=== PATIENT | female | born 1980 | race Caucasian/White ===

== ENCOUNTER 2016-05-14 13:57 | Inpatient (IN) | payer MEDICAID ==
[~2016-05-14] VITALS: Ht 165.1 cm; Wt 108.9 kg
[2016-05-14] MEDS ORDERED: CEFUROXIME 1.5 GM (ZINACEF) VIAL ONE (14:05)
[2016-05-14] MEDS ORDERED: DEXAMETHASONE PF 10 MG/ML (DECADRON) VIAL ONE ×3 (14:06→15:14)
[2016-05-14] MEDS ORDERED: NS (IVPB) 50 ML ONE (14:07)
[2016-05-14] MEDS ORDERED: fentaNYL INJECTION 100 MCG/2 ML AMP ONE ×2 (14:12→15:01)
[2016-05-14] MEDS ORDERED: ONDANSETRON 4 MG/2 ML (SDV) Z0FRAN ONE ×2 (14:12→15:11)
[2016-05-14] MEDS ORDERED: MIDAZOLAM 2 MG/2 ML (VERSED) VIAL ONE (14:12)
[2016-05-14] MEDS ORDERED: LIDOCAINE 1% 10 MG/ML 0.2 ML SYR (FOR IV START) ONE (14:13)
[2016-05-14] MEDS ORDERED: LIDOCAINE PF 2% 10 ML (XYLOCAINE) AMP ONE (14:14)
[2016-05-14] MEDS ORDERED: LACTATED RINGERS 1,000 ML IV ONE (14:14)
[2016-05-14] MEDS ORDERED: SEVOFLURANE (ULTANE) 15 ML INHAL SOLN ONE ×3 (14:14→16:07)
[2016-05-14] MEDS ORDERED: ROCURONIUM 50 MG/5 ML (ZEMURON) VIAL IV ONE (14:14)
[2016-05-14] MEDS ORDERED: proPOfol 200 MG/20 ML (DIPRIVAN) VIAL IV ONE (14:14)
[2016-05-14] MEDS: LACTATED RINGERS 1,000 ML IV SCH ×2 (14:20→21:21)
[2016-05-14] MEDS ORDERED: CEFUROXIME 1.5 GM/NS 50 ML IVPB IV ONE ×2 (14:30)
[2016-05-14] MEDS ORDERED: DEXAMETHASONE PF 10 MG/ML (DECADRON) VIAL IV ONE (14:30)
[2016-05-14 14:33] VITALS: BP 134/95
[2016-05-14 14:39] LABS: BASOPHILS % (AUTO) 0 % (0-10); EOSINOPHILS % (AUTO) 0 % (0-10); LYMPHOCYTES # (AUTO) 0.6 X 10^3 (1.0-4.0); LYMPHOCYTES % (AUTO) 1 % (12-44); MEAN CORPUSCULAR HEMOGLOBIN 23 PG (25-34); MEAN CORPUSCULAR HGB CONC 31 G/DL (32-36); MEAN CORPUSCULAR VOLUME 74 FL (80-99); MEAN PLATELET VOLUME 10.2 FL (7.4-10.4); MONOCYTES # (AUTO) 1.7 X 10^3 (0.0-1.0); MONOCYTES % (AUTO) 4 % (0-12); NEUTROPHILS % (AUTO) 95 % (42-75); PLATELET COUNT 327 10^3/uL (130-400); RED CELL DISTRIBUTION WIDTH 15.6 % (10.0-14.5)
[2016-05-14 14:45] LABS: WHITE BLOOD COUNT 43.4 10^3/uL (4.3-11.0)
[2016-05-14] MEDS ORDERED: LIDOCAINE/EPI 1%-1:100,000 (XYLOCAINE) 20ML ONE (14:49)
[2016-05-14 14:52] LABS: ANION GAP 10 MMOL/L (5-14); BLOOD UREA NITROGEN 9 MG/DL (7-18); BUN/CREATININE RATIO 13; CALCIUM 8.8 MG/DL (8.5-10.1); CARBON DIOXIDE 23 MMOL/L (21-32); CHLORIDE 105 MMOL/L (98-107); GFR ESTIMATED > 60; GLUCOSE 118 MG/DL (70-105); POTASSIUM 4.2 MMOL/L (3.6-5.0); SODIUM 138 MMOL/L (135-145)
--- NOTE | 2016-05-14 14:55 | Progress Note-Pre Operative ---
Pre-Operative Progress Note H&P Reviewed The H&P was reviewed, patient examined and no changes noted. Date H&P Reviewed: May 14, 2016 Time H&P Reviewed: 14:50 Pre-Operative Diagnosis: Left Peritonsillar ABscess ROMULO WOO MD May 14, 2016 2:55 pm
[2016-05-14 15:01] LABS: BAND NEUTROPHILS 2 %; BASOPHILS % (MANUAL) 1 %; LYMPHOCYTES % (MANUAL) 1 %; NEUTROPHILS % (MANUAL) 95 %
[2016-05-14] MEDS ORDERED: morphine INJ 10 MG/ML 1ML (SYR OR VIAL) ONE (15:11)
[2016-05-14] MEDS ORDERED: SUCCINYLCHOLINE INJ 100 MG/5 ML SYR ONE (16:01)
--- NOTE | 2016-05-14 16:19 | Progress Note-Post Operative ---
Post-Operative Progess Note Surgeon (s)/Solidworks Mechanical Designer (s) Surgeon ROMULO WOO MD Solidworks Mechanical Designer: n/a Pre-Operative Diagnosis Left Peritonsillar ABscess Post-Operative Diagnosis Left Peritonsillar Cellulitis, Left parpharyngeal ABscess Post-Op Procedure Note Date of Procedure: May 14, 2016 Name of Procedure Performed: Incision and DRainage-Left Peritonsillar Cellulitis/Abscess Incision and Dariange Left Deep Neck Abscess-Left parpharyngeal space-external incision Description of the Procedure: aeroibic and anaerobic cultures taken from left paraphayrngeal space to lab small amount of put removed from left peritonsilalr region and left parapharyngeal space Findings of the Procedure see above Anesthesia Type GET Estimated blood loss (mL): 25cc Packin 1/2 inch malena drains placed with a neck dressing Specimen(s) collected/removed see above ROMULO WOO MD May 14, 2016 16:18
[2016-05-14] MEDS ORDERED: ACETAMINOPHEN 325 MG TABLET/CAPLET (TYLENOL) PO PRN (16:30)
[2016-05-14] MEDS ORDERED: HYDROmorphone (DILAUDID) 2 MG/ML VIAL IVP PRN (16:45)
[2016-05-14] MEDS ORDERED: morphine INJ 10 MG/ML 1ML (SYR OR VIAL) IVP PRN (16:45)
[2016-05-14] MEDS ORDERED: ONDANSETRON 4 MG/2 ML (SDV) Z0FRAN IVP PRN (16:45)
[2016-05-14] MEDS ORDERED: MEPERIDINE (DEMEROL) INJ 50 MG/ML IVP PRN (16:45)
[2016-05-14 17:30] VITALS: BP 134/95
[2016-05-14] MEDS ORDERED: DEXAMETHASONE 4 MG/ML SDV (DECADRON) IV SCH (18:00)
[2016-05-14] MEDS: fentaNYL INJECTION 100 MCG/2 ML AMP IVP PRN ×2 (18:14→21:21)
[2016-05-14 19:20] VITALS: BP 134/78
[2016-05-14] MEDS ORDERED: FLU TRIvalent (5 YOA+) 2016-17 (AFLURIA) 0.5 ML IM ONE (20:00)
[2016-05-14] MEDS: DEXAMETHASONE PF 10 MG/ML (DECADRON) VIAL IV SCH ×2 (20:03→23:48)
[2016-05-14] MEDS: CEFUROXIME INJECTION 1,500 MG in NS (IVPB) 50 ML IV SCH (21:25)
[2016-05-15] VITALS: BP 126/67
[2016-05-15] MEDS: fentaNYL INJECTION 100 MCG/2 ML AMP IVP PRN ×5 (03:16→16:55)
[2016-05-15 04:00] VITALS: BP 107/58
[2016-05-15] MEDS: DEXAMETHASONE PF 10 MG/ML (DECADRON) VIAL IV SCH ×3 (05:13→20:34)
[2016-05-15] MEDS: CEFUROXIME INJECTION 1,500 MG in NS (IVPB) 50 ML IV SCH ×3 (05:13→21:14)
[2016-05-15 06:01] LABS: BASOPHILS # (AUTO) 0.1 10^3/uL (0.0-0.1); BASOPHILS % (AUTO) 0 % (0-10); EOSINOPHILS % (AUTO) 0 % (0-10); LYMPHOCYTES % (AUTO) 2 % (12-44); MEAN CORPUSCULAR HEMOGLOBIN 23 PG (25-34); MEAN CORPUSCULAR HGB CONC 30 G/DL (32-36); MEAN CORPUSCULAR VOLUME 76 FL (80-99); MEAN PLATELET VOLUME 10.3 FL (7.4-10.4); MONOCYTES # (AUTO) 1.4 X 10^3 (0.0-1.0); MONOCYTES % (AUTO) 3 % (0-12); NEUTROPHILS # (AUTO) 45.6 X 10^3 (1.8-7.8); NEUTROPHILS % (AUTO) 95 % (42-75); PLATELET COUNT 321 10^3/uL (130-400); RED BLOOD COUNT 4.59 10^6/uL (4.35-5.85); RED CELL DISTRIBUTION WIDTH 15.7 % (10.0-14.5)
[2016-05-15 06:17] LABS: ANION GAP 9 MMOL/L (5-14); BLOOD UREA NITROGEN 16 MG/DL (7-18); BUN/CREATININE RATIO 21; CALCIUM 9.1 MG/DL (8.5-10.1); CARBON DIOXIDE 24 MMOL/L (21-32); CHLORIDE 105 MMOL/L (98-107); CREATININE SERUM 0.78 MG/DL (0.60-1.30); GFR ESTIMATED > 60; GLUCOSE 174 MG/DL (70-105); POTASSIUM 4.3 MMOL/L (3.6-5.0); SODIUM 138 MMOL/L (135-145)
--- NOTE | 2016-05-15 06:42 | Progress Note-Standard ---
Standard Progress Note Progress Notes/Assess & Plan Progress/Assessment & Plan ENT-Sarah-05/15 Patient able to swallow some-stings to swallow Had two doses of fentanyl overnight-overall she states she has less pain and is able to open her mouth better cultures pending-on zinacef and decadron NO fever Breathing without difficulty OP-less trismus left tonsil still bulging but less swollen that yesterday afternoon-incision in soft palate open Neck-dressing removed-two drains intact-moderate drainage-belt tender along angle of mandible No tenderness or swelling below incision site [id number]-[id number] am -48 which is an increase of 4 since last afternoon-still pred segs Did culture positive for Group A strep in [place] cultures done at time of surgery are sstill pending IMP 1. Left Neck Abscess-Strep 2. Clinically better but WBC rising Rec: 1. Await culture results-will add cleocin 900mg IV q 8-1st does now 2. With rising white count will repeat a ct of the neck this am and see if there is further acumulation of fluid At time of surgery -got a small amount of pus-pre-op ct showed a phlegmon with early abscess formation in parapharyngeal region If this am ct shows more involvement despite drainage procedure yesterday then will need to transfer to for evaluation and higher level of care Final Diagnosis Left Neck Abscess ROMULO WOO MD May 15, 2016 6:42 am
[2016-05-15] MEDS ORDERED: CATHETER FLUSH 10 ML SYR IV PRN (06:45)
[2016-05-15] MEDS ORDERED: IOHEXOL 350 MG/ML 100 ML (OMNIPAQUE 350) VIAL IV ONE (07:30)
[2016-05-15] MEDS ORDERED: NS 100 ML (IVPB) BAG IV ONE (07:30)
[2016-05-15] MEDS: LACTATED RINGERS 1,000 ML IV SCH ×2 (08:00→21:14)
[2016-05-15] MEDS: CLINDAMYCIN 900 MG/50 ML IVPB 50 ML IV SCH ×3 (08:00→22:25)
[2016-05-15 08:39] VITALS: BP 113/65
--- NOTE | 2016-05-15 08:49 | Diagnostic Imaging Report ---
PROCEDURE: CT neck soft tissue with contrast. TECHNIQUE: Multiple contiguous axial images were obtained through the neck after the administration of contrast. INDICATION: Followup left neck abscess. 100 mL of Omnipaque 350 administered intravenously. FINDINGS: There is a left peritonsillar abscess with air bubbles seen and minimal amount of fluid. This is measuring 1.5 x 1.1 x 1.4 cm. There is surrounding inflammation and thickening in the nasopharynx and in the hypopharynx and extending to the larynx predominantly on the left side with fullness of the left pyriformis sinus and extension of the mucosal thickening to the false cord level. There is to external drains placed from a submandibular approach with the drain tip terminating in the left parapharyngeal space abutting the mandibular attachment of the pterygoid muscles. The anterior drain terminates at the lower level about the lateral pterygoid muscle and the posterior the and terminates more superiorly between the mandible and the sites styloid process. Near the tip of the posterior drain there is a 7-mm rounded area of contrast enhancement. This is concerning for a pseudoaneurysm. This is close to branches coursing medially from the distal aspect of the external carotid artery and similar branches from the proximal aspect of the internal maxillary artery. The thyroid gland and the submandibular and parotid glands appear unremarkable. There are enlarged left submandibular lymph nodes seen up to 1 cm in short axis. Other similarly mildly enlarged upper cervical level II left-sided lymph nodes also noted. IMPRESSION: 1. There is significant inflammation and swelling in the oropharynx, hypopharynx, and larynx predominantly on the left side with an abscess cavity measuring 1.5 cm with minimal fluid. 2. There is an external drain placed from a left submandibular approach. 3. A 7-mm focus of contrast enhancement near medial aspect of the tip of the posterior drain is concerning for a pseudoaneurysm. This is located the slightly medial to the space between the mandible and the styloid process superiorly and could be arising from a proximal branch of the internal maxillary artery or the medial branch from the most distal aspect of the external carotid artery. Dr. Smith personally reviewed case and findings discussed at time of dictation. Dictated by: Dictated on workstation # [id number]
--- NOTE | 2016-05-15 09:22 | Progress Note-Standard ---
Standard Progress Note Progress Notes/Assess & Plan Progress/Assessment & Plan ENT-Sarah-05/15 Patient able to swallow some-stings to swallow Had two doses of fentanyl overnight-overall she states she has less pain and is able to open her mouth better cultures pending-on zinacef and decadron NO fever Breathing without difficulty OP-less trismus left tonsil still bulging but less swollen that yesterday afternoon-incision in soft palate open Neck-dressing removed-two drains intact-moderate drainage-oil process stillman along angle of mandible No tenderness or swelling below incision site [id number]-[id number]-brvk am -48 which is an increase of 4 since last afternoon-still pred segs Did culture positive for Group A strep in [place] cultures done at time of surgery are sstill pending IMP 1. Left Neck Abscess-Strep 2. Clinically better but WBC rising Rec: 1. Await culture results-will add cleocin 900mg IV q 8-1st does now 2. With rising white count will repeat a ct of the neck this am and see if there is further acumulation of fluid At time of surgery -got a small amount of pus-pre-op ct showed a phlegmon with early abscess formation in parapharyngeal region If this am ct shows more involvement despite drainage procedure yesterday then will need to transfer to [facility] for evaluation and higher level of care [id number] Ct reviewed with Rad. 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 concerned about cT findings and inc in wbc despite imprvement clinically will discuss with [facility] and discuss tx as well as possible transfer for higher level of care ROMULO WOO MD May 15, 2016 9:22 am
--- NOTE | 2016-05-15 10:49 | Progress Note-Standard ---
Standard Progress Note Progress Notes/Assess & Plan Progress/Assessment & Plan Sindy-05/15 Patient able to swallow some-stings to swallow Had two doses of fentanyl overnight-overall she states she has less pain and is able to open her mouth better cultures pending-on zinacef and decadron NO fever Breathing without difficulty OP-less trismus left tonsil still bulging but less swollen that yesterday afternoon-incision in soft palate open Neck-dressing removed-two drains intact-moderate drainage-decorating machine tender along angle of mandible No tenderness or swelling below incision site Row-jly-yfsq am -48 which is an increase of 4 since last afternoon-still pred segs Did culture positive for Group A strep in [place] cultures done at time of surgery are sstill pending IMP 1. Left Neck Abscess-Strep 2. Clinically better but WBC rising Rec: 1. Await culture results-will add cleocin 900mg IV q 8-1st does now 2. With rising white count will repeat a ct of the neck this am and see if there is further acumulation of fluid At time of surgery -got a small amount of pus-pre-op ct showed a phlegmon with early abscess formation in parapharyngeal region If this am ct shows more involvement despite drainage procedure yesterday then will need to transfer to for evaluation and higher level of care [id number] Ct reviewed with Rad. 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 concerned about cT findings and inc in wbc despite imprvement clinically will discuss with [facility] and discuss tx as well as possible transfer for higher level of care Sindy Talked with [facility] regarding patient and possible transfer Since patienbt is doing better clinically will follow her here and see hwo WBC responds It it responds and she shows no signs of sepsis then can continue to treat here If the wbc contiues to elevate then will need transfer to -discdussed with patient will also need follow up ct to make sure pseudoanerysm is stable in size await cultures resulst from surgery cleocin adeed to antibitoic regimen this am as well currently on both zinacef and cleocin ROMULO WOO MD May 15, 2016 10:49 am
[2016-05-15 12:00] VITALS: BP 119/59
--- NOTE | 2016-05-15 14:10 | Anesthesia-General Post-Op ---
General Patient Condition Mental Status/LOC: Same as Preop Cardiovascular: Satisfactory Nausea/Vomiting: Absent Respiratory: Satisfactory Pain: Controlled Complications: Absent Post Op Complications Complications None Follow Up Care/Instructions Patient Instructions None needed. Anesthesia/Patient Condition Patient Condition Patient is doing well, no complaints, stable vital signs, no apparent adverse anesthesia problems. No complications reported per nursing. KARYNA HALL CRNA May 15, 2016 14:10
[2016-05-15 16:10] VITALS: BP 120/60
[2016-05-15 16:34] LABS: BASOPHILS % (AUTO) 0 % (0-10); EOSINOPHILS % (AUTO) 0 % (0-10); LYMPHOCYTES # (AUTO) 0.9 X 10^3 (1.0-4.0); LYMPHOCYTES % (AUTO) 2 % (12-44); MEAN CORPUSCULAR HEMOGLOBIN 23 PG (25-34); MEAN CORPUSCULAR HGB CONC 31 G/DL (32-36); MEAN CORPUSCULAR VOLUME 75 FL (80-99); MEAN PLATELET VOLUME 10.2 FL (7.4-10.4); MONOCYTES # (AUTO) 1.4 X 10^3 (0.0-1.0); MONOCYTES % (AUTO) 3 % (0-12); NEUTROPHILS # (AUTO) 43.5 X 10^3 (1.8-7.8); NEUTROPHILS % (AUTO) 95 % (42-75); PLATELET COUNT 329 10^3/uL (130-400); RED BLOOD COUNT 4.22 10^6/uL (4.35-5.85); RED CELL DISTRIBUTION WIDTH 15.5 % (10.0-14.5)
[2016-05-15 16:44] LABS: WHITE BLOOD COUNT 45.8 10^3/uL (4.3-11.0)
[2016-05-15 17:01] LABS: BAND NEUTROPHILS 5 %; BASOPHILS % (MANUAL) 0 %; EOSINOPHILS % (MANUAL) 0 %; LYMPHOCYTES % (MANUAL) 5 %; MICROCYTOSIS SLIGHT; NEUTROPHILS % (MANUAL) 88 %
[2016-05-15] MEDS: HYDROcodone/APAP 5 MG/325 MG (LORTAB) TAB PO PRN (18:04)
[2016-05-15 20:10] VITALS: BP 127/66
[2016-05-16] MEDS: HYDROcodone/APAP 5 MG/325 MG (LORTAB) TAB PO PRN ×5 (00:01→18:21)
[2016-05-16 00:30] VITALS: BP 141/75
[2016-05-16] MEDS: DEXAMETHASONE PF 10 MG/ML (DECADRON) VIAL IV SCH ×3 (01:50→20:18)
[2016-05-16 04:40] VITALS: BP 132/73
[2016-05-16] MEDS: CEFUROXIME INJECTION 1,500 MG in NS (IVPB) 50 ML IV SCH ×3 (05:07→21:01)
[2016-05-16] MEDS: CLINDAMYCIN 900 MG/50 ML IVPB 50 ML IV SCH ×3 (05:49→21:46)
[2016-05-16 06:13] LABS: BASOPHILS % (AUTO) 0 % (0-10); EOSINOPHILS % (AUTO) 0 % (0-10); LYMPHOCYTES # (AUTO) 1.3 X 10^3 (1.0-4.0); LYMPHOCYTES % (AUTO) 4 % (12-44); MEAN CORPUSCULAR HEMOGLOBIN 23 PG (25-34); MEAN CORPUSCULAR HGB CONC 30 G/DL (32-36); MEAN CORPUSCULAR VOLUME 75 FL (80-99); MEAN PLATELET VOLUME 10.7 FL (7.4-10.4); MONOCYTES % (AUTO) 3 % (0-12); NEUTROPHILS # (AUTO) 35.7 X 10^3 (1.8-7.8); NEUTROPHILS % (AUTO) 94 % (42-75); PLATELET COUNT 362 10^3/uL (130-400); RED BLOOD COUNT 4.28 10^6/uL (4.35-5.85); RED CELL DISTRIBUTION WIDTH 15.6 % (10.0-14.5)
[2016-05-16] MEDS: LACTATED RINGERS 1,000 ML IV SCH ×3 (06:24→21:46)
--- NOTE | 2016-05-16 06:44 | Progress Note-Standard ---
Standard Progress Note Progress Notes/Assess & Plan Progress/Assessment & Plan Sindy-05/15 Patient able to swallow some-stings to swallow Had two doses of fentanyl overnight-overall she states she has less pain and is able to open her mouth better cultures pending-on zinacef and decadron NO fever Breathing without difficulty OP-less trismus left tonsil still bulging but less swollen that yesterday afternoon-incision in soft palate open Neck-dressing removed-two drains intact-moderate drainage-stitch bonding machine tender along angle of mandible No tenderness or swelling below incision site Xkh-psf-emel am -48 which is an increase of 4 since last afternoon-still pred segs Did culture positive for Group A strep in [place] cultures done at time of surgery are sstill pending IMP 1. Left Neck Abscess-Strep 2. Clinically better but WBC rising Rec: 1. Await culture results-will add cleocin 900mg IV q 8-1st does now 2. With rising white count will repeat a ct of the neck this am and see if there is further acumulation of fluid At time of surgery -got a small amount of pus-pre-op ct showed a phlegmon with early abscess formation in parapharyngeal region If this am ct shows more involvement despite drainage procedure yesterday then will need to transfer to for evaluation and higher level of care [id number] Ct reviewed with Rad. 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 concerned about cT findings and inc in wbc despite imprvement clinically will discuss with [facility] and discuss tx as well as possible transfer for higher level of care Sindy Talked with [facility] regarding patient and possible transfer Since patienbt is doing better clinically will follow her here and see hwo WBC responds It it responds and she shows no signs of sepsis then can continue to treat here If the wbc contiues to elevate then will need transfer to -discdussed with patient will also need follow up ct to make sure pseudoanerysm is stable in size await cultures resulst from surgery cleocin adeed to antibitoic regimen this am as well currently on both zinacef and cleocin 05/1643-[id number] Clinically continues to do better taking oral hydrocodone which is taking care of her pain trismus resolved neck pain better mild amount of drainage on dressing WBC-this am 38 which is down from 48 yesterday taking some fluids in today-will recheck cbc at 4pm and then again in am once wbc gets down to lower twenties then can consider discharge home with outpat IV antibotics clsoer to home cultures negative so far with exception of postivbe strep screen in [place] scd's while in bed diet and fluids encouraged Overall stating to see gradual improvement in white count and clinical resolution will need another ct of the neck to check pseudoanerysm timing to be determined on when we advance and get rid of drains-that could be done as an outpt as well ROMULO WOO MD May 16, 2016 6:44 am
[2016-05-16 07:20] LABS: ANISOCYTOSIS SLIGHT; BAND NEUTROPHILS 14 %; BASOPHILS % (MANUAL) 0 %; EOSINOPHILS % (MANUAL) 0 %; LYMPHOCYTES % (MANUAL) 2 %; MICROCYTOSIS SLIGHT; NEUTROPHILS % (MANUAL) 84 %
[2016-05-16 08:00] VITALS: BP 147/92
[2016-05-16 12:00] VITALS: BP 142/79
[2016-05-16 15:32] LABS: BASOPHILS % (AUTO) 0 % (0-10); EOSINOPHILS % (AUTO) 0 % (0-10); LYMPHOCYTES # (AUTO) 1.4 X 10^3 (1.0-4.0); LYMPHOCYTES % (AUTO) 5 % (12-44); MEAN CORPUSCULAR HEMOGLOBIN 22 PG (25-34); MEAN CORPUSCULAR HGB CONC 30 G/DL (32-36); MEAN CORPUSCULAR VOLUME 75 FL (80-99); MEAN PLATELET VOLUME 10.5 FL (7.4-10.4); MONOCYTES % (AUTO) 3 % (0-12); NEUTROPHILS # (AUTO) 26.6 X 10^3 (1.8-7.8); NEUTROPHILS % (AUTO) 92 % (42-75); PLATELET COUNT 338 10^3/uL (130-400); RED CELL DISTRIBUTION WIDTH 15.4 % (10.0-14.5)
[2016-05-16 15:50] VITALS: BP 153/93
[2016-05-16 15:55] LABS: BAND NEUTROPHILS 7 %; BASOPHILS % (MANUAL) 0 %; EOSINOPHILS % (MANUAL) 0 %; LYMPHOCYTES % (MANUAL) 5 %; NEUTROPHILS % (MANUAL) 86 %
[2016-05-16 15:56] LABS: ANISOCYTOSIS SLIGHT; HYPOCHROMASIA SLIGHT; MICROCYTOSIS SLIGHT
[2016-05-16 20:25] VITALS: BP 153/98
[2016-05-16] MEDS: fentaNYL INJECTION 100 MCG/2 ML AMP IVP PRN (21:12)
[2016-05-17] VITALS: BP 139/84
[2016-05-17] MEDS: HYDROcodone/APAP 5 MG/325 MG (LORTAB) TAB PO PRN ×5 (00:23→20:10)
[2016-05-17] MEDS: fentaNYL INJECTION 100 MCG/2 ML AMP IVP PRN ×8 (00:23→23:28)
[2016-05-17 05:01] LABS: BASOPHILS % (AUTO) 0 % (0-10); EOSINOPHILS % (AUTO) 0 % (0-10); LYMPHOCYTES # (AUTO) 1.6 X 10^3 (1.0-4.0); LYMPHOCYTES % (AUTO) 7 % (12-44); MEAN CORPUSCULAR HEMOGLOBIN 23 PG (25-34); MEAN CORPUSCULAR HGB CONC 31 G/DL (32-36); MEAN CORPUSCULAR VOLUME 75 FL (80-99); MEAN PLATELET VOLUME 11.1 FL (7.4-10.4); MONOCYTES # (AUTO) 0.8 X 10^3 (0.0-1.0); MONOCYTES % (AUTO) 3 % (0-12); NEUTROPHILS # (AUTO) 19.8 X 10^3 (1.8-7.8); NEUTROPHILS % (AUTO) 90 % (42-75); PLATELET COUNT 269 10^3/uL (130-400); RED BLOOD COUNT 4.08 10^6/uL (4.35-5.85); RED CELL DISTRIBUTION WIDTH 15.5 % (10.0-14.5); WHITE BLOOD COUNT 22.2 10^3/uL (4.3-11.0)
[2016-05-17] MEDS: CEFUROXIME INJECTION 1,500 MG in NS (IVPB) 50 ML IV SCH ×3 (05:06→21:16)
[2016-05-17 05:56] LABS: ANISOCYTOSIS SLIGHT; ATYPICAL LYMPHOCYTES 1 %; BAND NEUTROPHILS 1 %; BASOPHILS % (MANUAL) 0 %; EOSINOPHILS % (MANUAL) 0 %; HYPOCHROMASIA SLIGHT; LYMPHOCYTES % (MANUAL) 5 %; MICROCYTOSIS SLIGHT; NEUTROPHILS % (MANUAL) 89 %; REACTIVE LYMPHOCYTES 2 %
[2016-05-17] MEDS: CLINDAMYCIN 900 MG/50 ML IVPB 50 ML IV SCH ×3 (05:58→22:13)
--- NOTE | 2016-05-17 06:28 | Progress Note-Standard ---
Standard Progress Note Progress Notes/Assess & Plan Progress/Assessment & Plan Maxi-05/15 Patient able to swallow some-stings to swallow Had two doses of fentanyl overnight-overall she states she has less pain and is able to open her mouth better cultures pending-on zinacef and decadron NO fever Breathing without difficulty OP-less trismus left tonsil still bulging but less swollen that yesterday afternoon-incision in soft palate open Neck-dressing removed-two drains intact-moderate drainage-distillery miller helper along angle of mandible No tenderness or swelling below incision site Cdw-ovz-adnj am -48 which is an increase of 4 since last afternoon-still pred segs Did culture positive for Group A strep in [place] cultures done at time of surgery are sstill pending IMP 1. Left Neck Abscess-Strep 2. Clinically better but WBC rising Rec: 1. Await culture results-will add cleocin 900mg IV q 8-1st does now 2. With rising white count will repeat a ct of the neck this am and see if there is further acumulation of fluid At time of surgery -got a small amount of pus-pre-op ct showed a phlegmon with early abscess formation in parapharyngeal region If this am ct shows more involvement despite drainage procedure yesterday then will need to transfer to for evaluation and higher level of care [id number] Ct reviewed with Rad. 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 concerned about cT findings and inc in wbc despite imprvement clinically will discuss with [facility] and discuss tx as well as possible transfer for higher level of care Maxi Talked with [facility] regarding patient and possible transfer Since patienbt is doing better clinically will follow her here and see hwo WBC responds It it responds and she shows no signs of sepsis then can continue to treat here If the wbc contiues to elevate then will need transfer to -discdussed with patient will also need follow up ct to make sure pseudoanerysm is stable in size await cultures resulst from surgery cleocin adeed to antibitoic regimen this am as well currently on both zinacef and cleocin 05/1612-[id number] Clinically continues to do better taking oral hydrocodone which is taking care of her pain trismus resolved neck pain better mild amount of drainage on dressing WBC-this am 38 which is down from 48 yesterday taking some fluids in today-will recheck cbc at 4pm and then again in am once wbc gets down to lower twenties then can consider discharge home with outpat IV antibotics clsoer to home cultures negative so far with exception of postivbe strep screen in [place] scd's while in bed diet and fluids encouraged Overall stating to see gradual improvement in white count and clinical resolution will need another ct of the neck to check pseudoanerysm timing to be determined on when we advance and get rid of drains-that could be done as an outpt as well ENT-Sarah-05/17 Doing much better Drains advanced without problem minimal drainage on dressing unable to do HOme IV antbx iam lplan on keeping until we can switch to orals and drains gone will need post treatment ct scan in a couple of weeks as well. CBC in AM WBC-this am -22.9-much improved-tolerating diet better yesterday as well ROMULO WOO MD May 17, 2016 6:28 am
[2016-05-17 08:00] VITALS: BP 164/92
[2016-05-17] MEDS: LACTATED RINGERS 1,000 ML IV SCH ×2 (09:08→21:16)
[2016-05-17] MEDS: DEXAMETHASONE PF 10 MG/ML (DECADRON) VIAL IV SCH ×2 (09:08→20:11)
[2016-05-17 15:45] VITALS: BP 134/79
[2016-05-18] VITALS: BP 142/85
[2016-05-18] MEDS: HYDROcodone/APAP 5 MG/325 MG (LORTAB) TAB PO PRN ×4 (03:08→22:06)
[2016-05-18] MEDS: fentaNYL INJECTION 100 MCG/2 ML AMP IVP PRN ×4 (03:08→14:09)
[2016-05-18] MEDS: CEFUROXIME INJECTION 1,500 MG in NS (IVPB) 50 ML IV SCH ×3 (05:18→21:00)
[2016-05-18 05:30] LABS: BASOPHILS % (AUTO) 0 % (0-10); EOSINOPHILS % (AUTO) 0 % (0-10); LYMPHOCYTES # (AUTO) 2.5 X 10^3 (1.0-4.0); LYMPHOCYTES % (AUTO) 13 % (12-44); MEAN CORPUSCULAR HEMOGLOBIN 23 PG (25-34); MEAN CORPUSCULAR HGB CONC 31 G/DL (32-36); MEAN CORPUSCULAR VOLUME 74 FL (80-99); MONOCYTES % (AUTO) 5 % (0-12); NEUTROPHILS # (AUTO) 15.3 X 10^3 (1.8-7.8); NEUTROPHILS % (AUTO) 82 % (42-75); PLATELET COUNT 372 10^3/uL (130-400); RED BLOOD COUNT 4.16 10^6/uL (4.35-5.85); RED CELL DISTRIBUTION WIDTH 15.3 % (10.0-14.5); WHITE BLOOD COUNT 18.7 10^3/uL (4.3-11.0)
[2016-05-18] MEDS: CLINDAMYCIN 900 MG/50 ML IVPB 50 ML IV SCH ×3 (05:46→22:05)
[2016-05-18 05:54] LABS: ANISOCYTOSIS SLIGHT; BAND NEUTROPHILS 4 %; BASOPHILS % (MANUAL) 0 %; EOSINOPHILS % (MANUAL) 0 %; HYPOCHROMASIA MODERATE; LYMPHOCYTES % (MANUAL) 15 %; METAMYELOCYTES % 2 %; NEUTROPHILS % (MANUAL) 71 %; REACTIVE LYMPHOCYTES 2 %; ROULEAUX SLIGHT; TARGET CELLS SLIGHT
--- NOTE | 2016-05-18 06:20 | Progress Note-Standard ---
Standard Progress Note Progress Notes/Assess & Plan Progress/Assessment & Plan Sindy-05/15 Patient able to swallow some-stings to swallow Had two doses of fentanyl overnight-overall she states she has less pain and is able to open her mouth better cultures pending-on zinacef and decadron NO fever Breathing without difficulty OP-less trismus left tonsil still bulging but less swollen that yesterday afternoon-incision in soft palate open Neck-dressing removed-two drains intact-moderate drainage-side seam tender along angle of mandible No tenderness or swelling below incision site Xza-tnd-nwii am -48 which is an increase of 4 since last afternoon-still pred segs Did culture positive for Group A strep in [place] cultures done at time of surgery are sstill pending IMP 1. Left Neck Abscess-Strep 2. Clinically better but WBC rising Rec: 1. Await culture results-will add cleocin 900mg IV q 8-1st does now 2. With rising white count will repeat a ct of the neck this am and see if there is further acumulation of fluid At time of surgery -got a small amount of pus-pre-op ct showed a phlegmon with early abscess formation in parapharyngeal region If this am ct shows more involvement despite drainage procedure yesterday then will need to transfer to for evaluation and higher level of care [id number] Ct reviewed with Rad. 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 concerned about cT findings and inc in wbc despite imprvement clinically will discuss with [facility] and discuss tx as well as possible transfer for higher level of care Sindy Talked with [facility] regarding patient and possible transfer Since patienbt is doing better clinically will follow her here and see hwo WBC responds It it responds and she shows no signs of sepsis then can continue to treat here If the wbc contiues to elevate then will need transfer to -discdussed with patient will also need follow up ct to make sure pseudoanerysm is stable in size await cultures resulst from surgery cleocin adeed to antibitoic regimen this am as well currently on both zinacef and cleocin 05/1641-[id number] Clinically continues to do better taking oral hydrocodone which is taking care of her pain trismus resolved neck pain better mild amount of drainage on dressing WBC-this am 38 which is down from 48 yesterday taking some fluids in today-will recheck cbc at 4pm and then again in am once wbc gets down to lower twenties then can consider discharge home with outpat IV antibotics clsoer to home cultures negative so far with exception of postivbe strep screen in [place] scd's while in bed diet and fluids encouraged Overall stating to see gradual improvement in white count and clinical resolution will need another ct of the neck to check pseudoanerysm timing to be determined on when we advance and get rid of drains-that could be done as an outpt as well Sindy-05/17 Doing much better Drains advanced without problem minimal drainage on dressing unable to do HOme IV antbx iam lplan on keeping until we can switch to orals and drains gone will need post treatment ct scan in a couple of weeks as well. CBC in AM WBC-this am -22.9-much improved-tolerating diet better yesterday as well Sindy Doing WEll Drains D/C'ed today will let external incision heal in on it's own-[address] to remove as outpatient plan on one more d ay of IV antibiotics then home on thursday with courses of cleocin and ceftin will also send home with hydrocodone if needed plan on seeing back in outpt clinic in 10 days to 2 weeks for review-will try to arrange for a follow up ct same day here prior to the apt. WBC-18.7 which is down from 22.9 yesterday no further cbcs needed at this point Final Diagnosis Deep left Neck abscess ROMULO WOO MD May 18, 2016 6:20 am
[2016-05-18 08:00] VITALS: BP 152/93
[2016-05-18] MEDS: DEXAMETHASONE PF 10 MG/ML (DECADRON) VIAL IV SCH ×2 (08:38→20:55)
[2016-05-18] MEDS: LACTATED RINGERS 1,000 ML IV SCH ×2 (08:39→20:55)
[2016-05-18 16:20] VITALS: BP 155/92
[2016-05-18] MEDS: ANTACID SUSP 30 ML UDC (MYLANTA) PO PRN (17:00)
[2016-05-18 18:08] VITALS: BP 146/84
[2016-05-19 00:30] VITALS: BP 154/84
[2016-05-19] MEDS: ANTACID SUSP 30 ML UDC (MYLANTA) PO PRN (00:54)
[2016-05-19] MEDS: LACTATED RINGERS 1,000 ML IV SCH (05:00)
[2016-05-19] MEDS: HYDROcodone/APAP 5 MG/325 MG (LORTAB) TAB PO PRN (05:14)
[2016-05-19] MEDS: CEFUROXIME INJECTION 1,500 MG in NS (IVPB) 50 ML IV SCH (05:14)
[2016-05-19] MEDS: CLINDAMYCIN 900 MG/50 ML IVPB 50 ML IV SCH (05:40)
--- NOTE | 2016-05-19 06:37 | Progress Note-Standard ---
Standard Progress Note Progress Notes/Assess & Plan Progress/Assessment & Plan Maxi-05/15 Patient able to swallow some-stings to swallow Had two doses of fentanyl overnight-overall she states she has less pain and is able to open her mouth better cultures pending-on zinacef and decadron NO fever Breathing without difficulty OP-less trismus left tonsil still bulging but less swollen that yesterday afternoon-incision in soft palate open Neck-dressing removed-two drains intact-moderate drainage-mud mill tender along angle of mandible No tenderness or swelling below incision site Wkd-sld-afsx am -48 which is an increase of 4 since last afternoon-still pred segs Did culture positive for Group A strep in [place] cultures done at time of surgery are sstill pending IMP 1. Left Neck Abscess-Strep 2. Clinically better but WBC rising Rec: 1. Await culture results-will add cleocin 900mg IV q 8-1st does now 2. With rising white count will repeat a ct of the neck this am and see if there is further acumulation of fluid At time of surgery -got a small amount of pus-pre-op ct showed a phlegmon with early abscess formation in parapharyngeal region If this am ct shows more involvement despite drainage procedure yesterday then will need to transfer to for evaluation and higher level of care [id number] Ct reviewed with Rad. 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 concerned about cT findings and inc in wbc despite imprvement clinically will discuss with [facility] and discuss tx as well as possible transfer for higher level of care Maxi Talked with [facility] regarding patient and possible transfer Since patienbt is doing better clinically will follow her here and see hwo WBC responds It it responds and she shows no signs of sepsis then can continue to treat here If the wbc contiues to elevate then will need transfer to -discdussed with patient will also need follow up ct to make sure pseudoanerysm is stable in size await cultures resulst from surgery cleocin adeed to antibitoic regimen this am as well currently on both zinacef and cleocin [id number] Clinically continues to do better taking oral hydrocodone which is taking care of her pain trismus resolved neck pain better mild amount of drainage on dressing WBC-this am 38 which is down from 48 yesterday taking some fluids in today-will recheck cbc at 4pm and then again in am once wbc gets down to lower twenties then can consider discharge home with outpat IV antibotics clsoer to home cultures negative so far with exception of postivbe strep screen in [place] scd's while in bed diet and fluids encouraged Overall stating to see gradual improvement in white count and clinical resolution will need another ct of the neck to check pseudoanerysm timing to be determined on when we advance and get rid of drains-that could be done as an outpt as well Maxi-05/17 Doing much better Drains advanced without problem minimal drainage on dressing unable to do HOme IV antbx iam lplan on keeping until we can switch to orals and drains gone will need post treatment ct scan in a couple of weeks as well. CBC in AM WBC-this am -22.9-much improved-tolerating diet better yesterday as well Maxi Doing WEll Drains D/C'ed today will let external incision heal in on it's own-1 or [address] to remove as outpatient plan on one more d ay of IV antibiotics then home on thursday with courses of cleocin and ceftin will also send home with hydrocodone if needed plan on seeing back in outpt clinic in 10 days to 2 weeks for review-will try to arrange for a follow up ct same day here prior to the apt. WBC-18.7 which is down from 22.9 yesterday no further cbcs needed at this point ENTNathaniel-4/3 PAtient had reflux yesterday-took maalox HR-in 40's but asymotmatic Otherewise continues to improve Will idscharge today on oral antibiotics RTC-[address] of the neck Prescriptioins in chart ROMULO WOO MD May 19, 2016 6:37 am
[2016-05-19] MEDS: DEXAMETHASONE PF 10 MG/ML (DECADRON) VIAL IV SCH (07:56)
[2016-05-19 08:35] VITALS: BP 138/56
[2016-05-19] MEDS ORDERED: HYDR-3062 PO (09:46)
[2016-05-19] MEDS ORDERED: PRD20T PO (09:46)
[2016-05-19] MEDS ORDERED: CEFU125S PO (09:46)
[2016-05-19] MEDS ORDERED: CLIN300C3 PO (09:46)
[2016-05-19 10:24] VITALS: BP 138/56
--- NOTE | 2016-05-20 12:50 | DISCHARGE SUMMARY ---
DATE OF ADMISSION: 05/14/2016 DATE OF DISCHARGE: 05/19/2016 PRINCIPAL DIAGNOSIS: Deep left parapharyngeal abscess. SECONDARY DIAGNOSES: Left peritonsillar abscess. HOSPITAL COURSE: The patient was admitted to the hospital and taken directly to the operating room because of a left parapharyngeal abscess of left peritonsillar abscess. Her white count on admission was 43. She had severe left neck pain. She could not swallow her saliva. At the time of surgery infra-orally the peritonsillar region was opened up. A small amount of pus was removed. Next, an external drainage of the parapharyngeal region up to the level of the nasopharynx was carried out. Drains were placed. Postoperatively her white count initially continue to elevate up to 48. Because of that a repeat CT scan was obtained which revealed the abscess cavity to be much smaller. She did have a small pseudoaneurysm noted of the left maxillary artery. This was in the region of the drain placement. Over the ensuing 4 to 5 days she was kept on cefuroxime and Decadron. The white count went from 48 down to 18. Her pain resolved. The drains were removed. She had no significant bleeding. She was subsequently discharged home on 05/19 with prescriptions for 14 day course of oral cefuroxime and oral Cleocin. She will return to our clinic in 14 days for follow-up with a follow-up CT scan of the neck. I have asked her to call should her symptoms recur prior to that time. Job ID: [id number] Dictated Date: 05/20/2016 11:51:52 [employer] House Worker Date: 05/20/2016 12:45:13/taurus
--- OUTSIDE RECORDS SUMMARY | 2016-06-08 04:48 | XMS REPORT | CCD ---
Author Author ELA SHETTY Unknown Address [address] [place], [place] [id number] Care Team Providers Care Environmental Services Supervisor Name Role Phone NEERAJ PHYS, CELE ER Attphys NEERAJ PHYS, CELE ER Prisurg Vital Signs Unknown or Not Available. Allergies Unknown or Not Available. Procedures Procedure Code Procedure Type Date CT ABD AND PELVIS W/CONTRAST 046143806 SNOMED CT 2015 ABDOMEN 2 VIEW DECUB/UPRIGHT 053488747 SNOMED CT 2015 UA ROUTINE C&S IF IND 881370373 SNOMED CT 09/12/[address] 09/12/[address] 09/12/2015 CBC W/ AUTO DIFF (RFLX MAN DIFF IF IND) 8193989 SNOMED CT 09/12/2015 C REACTIVE PROTEIN 98438992 SNOMED CT 09/12/2015 COMPREHENSIVE METABOLIC PANEL 658692090 SNOMED CT 2015 ^UA WITH MICRO 490468857 SNOMED CT 09/12/2015 ^CBC W/AUTO DIFF 9242539 SNOMED CT 09/12/2015 LOCM 300-349 MG/ML, PER ML 664040554 SNOMED CT 09/12/2015 History of Immunizations Unknown or Not Available. Problems Unknown or Not Available. Results COMPREHENSIVE METABOLIC PANEL - Collect Date/Time: 09/12/2015 18:20 Test Name Code Test Result Test Units Test Ref Range GLUCOSE 2345-7 106 MG/DL L=70 H=100 SODIUM 2951-2 139 MEQ/L L=135 H=148 POTASSIUM 2823-3 3.7 MEQ/L L=3.5 H=5.3 CHLORIDE 2075-0 105 MEQ/L L=96 H=110 CO2 2028-9 23 MEQ/L L=22 H=29 BUN 3094-0 11 MG/DL L=8 H=22 CREATININE 2160-0 1.2 MG/DL L=0.6 H=1.6 SGOT/AST 1920-8 16 IU/L L=10 H=40 SGPT/ALT 1742-6 13 IU/L L=8 H=54 ALK PHOS 6768-6 94 IU/L L=35 H=115 TOTAL PROTEIN 2885-2 7.4 G/DL L=5.5 H=8.5 ALBUMIN 1751-7 4.0 G/DL L=3.1 H=5.4 TOTAL BILI 1975-2 0.2 MG/DL L=0.0 H=1.5 CALCIUM 58942-6 9.3 MG/DL L=8.2 H=10.6 AGE 35 yrs GFR NonAA 51 GFR AA 62 eGFR 51 mL/min/1.7 eGFR AA* >60 N/A LIPASE - Collect Date/Time: 09/12/2015 18:20 Test Name Code Test Result Test Units Test Ref Range LIPASE 3040-3 16 U/L L=8 H=78 CBC W/ AUTO DIFF (RFLX MAN DIFF IF IND) - Collect Date/Time: 09/12/2015 18:20 Test Name Code Test Result Test Units Test Ref Range WBC 04998-1 13.8 TH/CMM L=4.5 H=10.8 RBC 789-8 4.52 ML/CMM L=4.20 H=5.40 HGB 718-7 11.6 G/DL L=12.0 H=16.0 HCT 4544-3 37.5 % L=37.0 H=47.0 MCV 83 FL L=81 H=99 MCH 25.7 PG L=27.0 H=33.0 MCHC 30.9 G/DL L=31.0 H=36.0 RDW SD 42 FL L=36 H=50 RDW CV 13.8 % L=0.0 H=14.8 MPV 9.0 FL L=9.3 H=12.5 PLT 777-3 327 TH/CMM L=130 H=440 NRBC# 0.00 TH/CMM L=0.00 H=0.00 NRBC% 0.0 /100WBC L=0.0 H=2.0 %NEUT 74.5 % %LYMP 15.8 % %MONO 6.8 % %EOS 1.8 % %BASO 0.6 % #NEUT 10.30 TH/CMM L=2.10 H=8.20 #LYMP 2.19 TH/CMM L=0.90 H=5.20 #MONO 0.94 TH/CMM L=0.16 H=1.00 #EOS 0.25 TH/CMM L=0.00 H=0.80 #BASO 0.08 TH/CMM L=0.00 H=0.20 MANUAL DIFF NOT IND N/A UA ROUTINE C&S IF IND - Collect Date/Time: 09/12/2015 18:30 Test Name Code Test Result Test Units Test Ref Range COLOR YELLOW N/A NL: YELLOW APPEARANCE CLEAR N/A NL: CLEAR SPEC GRAV 1.020 N/A NL: 1.002 - 1.022 pH 6.5 N/A NL: 5 - 9 PROTEIN TRACE N/A NL: NEGATIVE mg/dl GLUCOSE NEGATIVE N/A NL: NEGATIVE mg/dl KETONE NEGATIVE N/A NL: NEGATIVE mg/dl BILIRUBIN NEGATIVE N/A NL: NEGATIVE BLOOD LARGE N/A NL: NEGATIVE NITRITE NEGATIVE N/A NL: NEGATIVE LEUK SCREEN NEGATIVE N/A NL: NEGATIVE MICRO INDICATED? SEE BELOW N/A WBC/HPF NEGATIVE N/A NL: NEGATIVE RBC/HPF 300-500 N/A NL: NEGATIVE CASTS/LPF FEW HYALINE N/A NL: NEGATIVE CRYSTALS NEGATIVE N/A NL: NEGATIVE MUCOUS THRDS NEGATIVE N/A NL: NEGATIVE BACTERIA NEGATIVE N/A NL: NEGATIVE EPITH CELLS 2++ SQUAMOUS N/A NL: NEGATIVE TRICHOMONAS NEGATIVE N/A NL: NEGATIVE YEAST NEGATIVE N/A NL: NEGATIVE CULT SET UP? NO N/A C REACTIVE PROTEIN - Collect Date/Time: 09/12/2015 18:20 Test Name Code Test Result Test Units Test Ref Range C REACTIVE PROTEIN 1988-5 3.0 MG/DL L=0.0 H= 1.0 TEST - Collect Date/Time: 09/12/2015 18:20 Test Name Code Test Result Test Units Test Ref Range TEST 2118-8 NEGATIVE N/A Active Medications Unknown or Not Available. Medications Administered During Visit Unknown or Not Available. Encounters Encounter Diagnosis Diagnosis Code Start Date Ureteric stone 64999125 09/12/2015 Social History Smoking Status Code Start Date End Date Never smoker [id number] Patient Decision Aids Unknown or Not Available. Discharge Instructions You were admitted to [facility] on 09/12/2015 16:50 with a principal diagnosis of Calculus of ureter You had the following tests done: C REACTIVE PROTEIN CBC W/ AUTO DIFF (RFLX MAN DIFF IF IND) COMPREHENSIVE METABOLIC PANEL LIPASE TEST UA ROUTINE C&S IF IND You were discharged from [facility] on 09/12/2015 22:09 Should you have any questions prior to discharge, please contact a member of your healthcare team. If you have left the hospital and have any questions, please contact your primary care physician. Chief Complaint and Reason For Visit Chief Complaint Date of Onset BACK PAIN Function Status Unknown or Not Available. Plan of Care Unknown or Not Available. Referral/Transition of Care Unknown or Not Available.
--- OUTSIDE RECORDS SUMMARY | 2016-06-08 04:48 | XMS REPORT | CCD ---
Author Author ELA SHETTY Unknown Address [address] [place], [place] [id number] Care Team Providers Care Tracer Powder Blender Name Role Phone NEERAJ PHYS, CELE ER Attphys NEERAJ PHYS, CELE ER Prisurg Vital Signs Unknown or Not Available. Allergies Unknown or Not Available. Procedures Procedure Code Procedure Type Date CT ABD AND PELVIS W/CONTRAST 678576599 SNOMED CT 2015 ABDOMEN 2 VIEW DECUB/UPRIGHT 006812816 SNOMED CT 2015 UA ROUTINE C&S IF IND 315679436 SNOMED CT 09/12/[address] 09/12/[address] 09/12/2015 CBC W/ AUTO DIFF (RFLX MAN DIFF IF IND) 3568732 SNOMED CT 09/12/2015 C REACTIVE PROTEIN 06434054 SNOMED CT 09/12/2015 COMPREHENSIVE METABOLIC PANEL 849230393 SNOMED CT 2015 ^UA WITH MICRO 261231941 SNOMED CT 09/12/2015 ^CBC W/AUTO DIFF 7270489 SNOMED CT 09/12/2015 LOCM 300-349 MG/ML, PER ML 443891796 SNOMED CT 09/12/2015 History of Immunizations Unknown [...] BILI 1975-2 0.2 MG/DL L=0.0 H=1.5 CALCIUM 38751-2 9.3 MG/DL L=8.2 H=10.6 AGE 35 yrs [...] Result Test Units Test Ref Range WBC 75023-6 13.8 TH/CMM L=4.5 H=10.8 RBC 789-8 4.52 [...] Diagnosis Diagnosis Code Start Date Ureteric stone [id number] 09/12/2015 Social History Smoking Status Code Start Date End Date Never smoker [id number] Patient Decision Aids Unknown or Not Available. Discharge Instructions You were admitted to [facility] on 09/12/2015 16:50 with a principal diagnosis of Calculus of ureter You had the following tests done: C REACTIVE PROTEIN CBC W/ AUTO DIFF (RFLX MAN DIFF IF IND) COMPREHENSIVE METABOLIC PANEL LIPASE TEST UA ROUTINE C&S IF IND You were discharged from [facility] on 09/12/2015 22:09 Should you have any [...]
== END 2016-05-19 09:55 | disposition home or self-care (01) | DRG 134 ==
LOC: DELPENDDIS → SDC 13:57 → 4TH 13:58
PROVIDERS: ADMIT Otolaryngology Otolaryngology/Facial Plastic Surgery; ATTEND Otolaryngology Otolaryngology/Facial Plastic Surgery
PROC: 0W9600Z Drainage of Neck with Drainage Device, Open Approach (ICD-10-PCS; 2016-05-14)
PROC: 0C9 Mouth and Throat, Drainage (ICD-10-PCS; principal; 2016-05-14 14:59)
DX: J36 Peritonsillar abscess (principal); I72.0 Aneurysm of carotid artery; R25.2 Cramp and spasm; B95.5 Unspecified streptococcus as the cause of diseases classified elsewhere; K21.9 Gastro-esophageal reflux disease without esophagitis
CPT/HCPCS: 36415; 70491; 80048; 85007; 85025; 85027; 87070; 87075; 87081; 87205; 94760